=== PATIENT | male | born 1995 | race Asian ===

== ENCOUNTER 2023-05-06 06:10 | Observation (INO) ==
[2023-05-06] MEDS ORDERED: NS 0.9% 1000 ml BAG 1,000 ML IV ONE (09:08)
[2023-05-06] MEDS ORDERED: Piperacillin/Tazobac 3.375 BAG 3.375 GM/100 ML BAG IV ONE (09:08)
[2023-05-06 09:37] LABS: Hematocrit 42.5 % (38-53); Hemoglobin 15.3 g/dL (13.2-16.3); Mean Corpuscular Hemoglobin 31.6 pg (27-33); Mean Platelet Volume 9.3 fL (7.5-11.2); Platelet Count 166 10^3/uL (150-450); Red Blood Count 4.83 10^6/uL (4.06-5.63); Red Cell Distribution Width 13.1 % (12-17); White Blood Count 23.4 10^3/uL (3.6-10.2)
[2023-05-06 09:55] LABS: Albumin/Globulin Ratio 1.6 (1-3); C Reactive Protein 148.65 mg/L (<8.01); Calcium 8.7 mg/dL (8.6-10.3); Creatinine, Serum 0.99 mg/dL (0.67-1.17); Globulin 2.5 g/dL (2-4); Potassium 4.3 mmol/L (3.5-5.0); Total Bilirubin 2.7 mg/dL (0.2-1.0); Total Protein 6.5 g/dL (6.4-8.9); eGFR CKD-EPI 108.4 (>60)
[2023-05-06] MEDS ORDERED: Vancomycin 1,500 MG in NS 0.9% 250 ml 250 ML IVPB ONE (10:00)
[2023-05-06 10:18] LABS: RBC Morphology Normal (Normal)
[2023-05-06 10:19] LABS: ABS Eosinophils 0.6 10^3/uL (0.0-0.5); ABS Lymphocytes 0.4 10^3/uL (1.0-4.8); ABS Monocytes 0.5 10^3/uL (0.0-1.1); ABS Neutrophils 21.9 10^3/uL (1.5-7.6); ABS Nucleated RBC 0.01 10^3/ul; Eosinophil % 2.6 %; Lymphocyte % 1.6 %
[2023-05-06] MEDS ORDERED: Iohexol 300 (CONTRAST) 10 ML SDV IV ONE (10:23)
[2023-05-06] MEDS: NS 0.9% 1000 ml BAG 1,000 ML IV SCH (11:01)
[2023-05-06] MEDS ORDERED: Vancomycin 1,000 MG in NS 0.9% 250 ml 250 ML IVPB ONE (12:29)
[2023-05-06] MEDS ORDERED: Al Hydrox/Mg Hydrox/Simet LIQ 30 ML UDC PO PRN (12:30)
[2023-05-06] MEDS ORDERED: NS 0.9% 1000 ml BAG 1,000 ML IV SCH (12:30)
[2023-05-06] MEDS ORDERED: Vancomycin per Pharmacy 1 EA NOTE FOLLOW UP SCH (13:00)
[2023-05-06] MEDS ORDERED: Clindamycin 900 MG/D5W BAG 900 MG/50 ML BAG IVPB SCH ×2 (14:00→18:00)
[2023-05-06] MEDS: Cefepime 2 GM in Dextrose 2 GM/50 ML BAG IV SCH (14:37)
[2023-05-06] MEDS ORDERED: Clindamycin 600 MG/NS BAG(*) 600 MG/50 ML BAG IV SCH (19:00)
[2023-05-06] MEDS: Clindamycin 600 MG/NS BAG(*) 600 MG/50 ML BAG IV SCH (19:48)
[2023-05-06] MEDS: Clindamycin 300 MG/D5W BAG 300 MG/50 ML BAG IV SCH (20:39)
[2023-05-06] MEDS: Vancomycin 1000 MG in NS 0.9% 250 ML IVPB SCH (21:24)
[2023-05-07] MEDS: Cefepime 2 GM in Dextrose 2 GM/50 ML BAG IV SCH ×2 (01:21→14:24)
[2023-05-07] MEDS: Clindamycin 600 MG/NS BAG(*) 600 MG/50 ML BAG IV SCH ×3 (03:32→22:32)
[2023-05-07] MEDS: Clindamycin 300 MG/D5W BAG 300 MG/50 ML BAG IV SCH ×3 (04:13→23:12)
[2023-05-07] MEDS: NS 0.9% 1000 ml BAG 1,000 ML IV SCH (04:37)
[2023-05-07] MEDS: Vancomycin 1000 MG in NS 0.9% 250 ML IVPB SCH ×3 (04:37→19:49)
[2023-05-07 05:45] LABS: ABS Eosinophils 0.5 10^3/uL (0.0-0.5); ABS Lymphocytes 0.4 10^3/uL (1.0-4.8); ABS Monocytes 0.5 10^3/uL (0.0-1.1); ABS Neutrophils 12.9 10^3/uL (1.5-7.6); ABS Nucleated RBC 0.02 10^3/ul; Eosinophil % 3.6 %; Hematocrit 39.5 % (38-53); Lymphocyte % 2.6 %; Mean Corpuscular Hemoglobin 30.8 pg (27-33); Mean Corpuscular Hgb Conc 35.4 g/dL (31-36); Mean Corpuscular Volume 86.9 fL (80-97); Mean Platelet Volume 9.3 fL (7.5-11.2); Nucleated Red Blood Cells % 0.1 /100 WBC (0.0-0.4); Platelet Count 139 10^3/uL (150-450); Red Blood Count 4.55 10^6/uL (4.06-5.63); Red Cell Distribution Width 13.1 % (12-17); White Blood Count 14.3 10^3/uL (3.6-10.2)
[2023-05-07 06:02] LABS: Albumin 3.3 g/dL (3.2-5.2); Albumin/Globulin Ratio 1.5 (1-3); Creatinine, Serum 0.81 mg/dL (0.67-1.17); Globulin 2.2 g/dL (2-4); Potassium 4.1 mmol/L (3.5-5.0); Total Bilirubin 1.4 mg/dL (0.2-1.0); Total Protein 5.5 g/dL (6.4-8.9); eGFR CKD-EPI 125.5 (>60)
[2023-05-07] MEDS ORDERED: Vancomycin Trough Check NOTE FOLLOW UP ONE (11:30)
[2023-05-08] MEDS: Cefepime 2 GM in Dextrose 2 GM/50 ML BAG IV SCH ×2 (01:17→13:29)
[2023-05-08] MEDS: Vancomycin 1000 MG in NS 0.9% 250 ML IVPB SCH (03:48)
[2023-05-08] MEDS: Clindamycin 600 MG/NS BAG(*) 600 MG/50 ML BAG IV SCH ×2 (05:36→12:21)
[2023-05-08 06:14] LABS: ABS Eosinophils 0.7 10^3/uL (0.0-0.5); ABS Lymphocytes 1.2 10^3/uL (1.0-4.8); ABS Monocytes 0.7 10^3/uL (0.0-1.1); ABS Neutrophils 9.2 10^3/uL (1.5-7.6); ABS Nucleated RBC 0.01 10^3/ul; Eosinophil % 6.3 %; Hematocrit 39.1 % (38-53); Lymphocyte % 9.8 %; Mean Corpuscular Hemoglobin 31.1 pg (27-33); Mean Corpuscular Hgb Conc 35.8 g/dL (31-36); Mean Platelet Volume 9.5 fL (7.5-11.2); Nucleated Red Blood Cells % 0.1 /100 WBC (0.0-0.4); Platelet Count 164 10^3/uL (150-450); Red Cell Distribution Width 13.3 % (12-17); White Blood Count 11.8 10^3/uL (3.6-10.2)
[2023-05-08] MEDS: Clindamycin 300 MG/D5W BAG 300 MG/50 ML BAG IV SCH ×2 (06:25→13:00)
[2023-05-08 06:42] LABS: Albumin 3.4 g/dL (3.2-5.2); Albumin/Globulin Ratio 1.5 (1-3); C Reactive Protein 80.45 mg/L (<8.01); Calcium 8.3 mg/dL (8.6-10.3); Creatinine, Serum 0.91 mg/dL (0.67-1.17); Globulin 2.3 g/dL (2-4); Potassium 4.1 mmol/L (3.5-5.0); Total Bilirubin 0.8 mg/dL (0.2-1.0); Total Protein 5.7 g/dL (6.4-8.9)
[2023-05-08 13:05] VITALS: BP 106/70
== END 2023-05-08 15:10 | disposition home or self-care (01) ==
LOC: ED 06:10 → EDHOLD 06:10 → MED 15:54
PROVIDERS: ADMIT Internal Medicine; ATTEND Internal Medicine